=== PATIENT | female | born 1975 | race Caucasian/White ===

== ENCOUNTER 2019-08-26 09:21 | Emergency (ER) | payer SELFPAY ==
--- NOTE | 2019-08-26 09:43 | EDM.PDOC ---
ED HPI GENERAL MEDICAL PROBLEM - General Chief Complaint: General Stated Complaint: L SIDE RIB PAIN Time Seen by Provider: 08/26/19 09:42 - History of Present Illness INITIAL COMMENTS - FREE TEXT/NARRATIVE: 44-year-old female presents emergency room with left-sided rib pain. 5 days ago the patient fell. She hit her rib cage on the left side on a baby gate. This occurred in [place]. She then took a bus ride up here and had some mild discomfort but now the pain is getting worse. She's also having some burning and frequency with urination. She may been exposed to genital herpes. Treatments [employer]: Reports: Cold Therapy, NSAIDS Left Middle Pain Score (Numeric/FACES): 8 - Related Data Allergies Allergy/AdvReac Type Severity Reaction Status Date / Time No Known Allergies Allergy Verified 08/26/19 09:30 Home Meds: Home Meds Naproxen [Naprosyn] 500 mg PO Q12HR #30 tab 08/26/19 [Rx] ED ROS GENERAL - Review of Systems Review Of Systems: See Below Constitutional: Reports: No Symptoms Respiratory: Reports: No Symptoms, Pleuritic Chest Pain Cardiovascular: Reports: No Symptoms Endocrine: Reports: No Symptoms GI/Abdominal: Reports: No Symptoms ED EXAM, GENERAL - Physical Exam Exam: See Below Exam Limited By: No Limitations General Appearance: Alert, No Apparent Distress Head: Atraumatic, Normocephalic Neck: Normal Inspection, Supple, Non-Tender, Full Range of Motion Respiratory/Chest: No Respiratory Distress, Lungs Clear, Normal Breath Sounds, Other (Deep breathing causes left lower rib discomfort) Cardiovascular: Regular Rate, Rhythm, No Edema, No Murmur GI/Abdominal: Normal Bowel Sounds, Soft, Other (Significant abdominal discomfort however palpation of the left upper abdomen causes her ribs to hurt) Back Exam: Normal Inspection. No: CVA Tenderness (L), CVA Tenderness (R), Vertebral Tenderness Neurological: Alert, Oriented, Normal Cognition Psychiatric: Normal Affect, Normal Mood Course - Vital Signs Last Recorded V/S: Last Vital Signs Temp 36.8 C 08/26/19 09:31 Pulse 106 H 08/26/19 09:31 Resp 12 08/26/19 09:31 BP 116/95 H 08/26/19 09:31 Pulse Ox 97 08/26/19 09:31 - Orders/Labs/Meds Labs: Laboratory Tests 08/26/19 08/26/19 08/26/19 Range/Units 10:00 10:26 10:26 D-Dimer, Quantitative 0.21 (0.19-0.50) mg/L Sodium 142 (136-145) mEq/L Potassium 4.3 (3.5-5.1) mEq/L Chloride 106 (98-107) mEq/L Carbon Dioxide 26 (21-32) mEq/L Anion Gap 14.3 (5-15) BUN 9 (7-18) mg/dL Creatinine 0.8 (0.55-1.02) mg/dL Est Cr Clr Drug Dosing 83.13 mL/min Estimated GFR (MDRD) > 60 (>60) mL/min BUN/Creatinine Ratio 11.3 L (14-18) Glucose 91 (74-106) mg/dL Calcium 8.9 (8.5-10.1) mg/dL Urine Color Yellow (Yellow) Urine Appearance Clear (Clear) Urine pH 6.0 (5.0-8.0) Ur Specific [place] 1.015 (1.005-1.030) Urine Protein Negative (Negative) Urine Glucose (UA) Negative (Negative) Urine Ketones Negative (Negative) Urine Occult Blood Trace-lysed H (Negative) Urine Nitrite Negative (Negative) Urine Bilirubin Negative (Negative) Urine Urobilinogen 0.2 (0.2-1.0) Ur Leukocyte Esterase 1+ H (Negative) Urine RBC 0-5 (0-5) /hpf Urine WBC 5-10 H (0-5) /hpf Ur Squamous Epith Cells 5-10 H (0-5) /hpf Urine Bacteria Few (FEW) /hpf Urine Mucus Few (FEW) /hpf Meds: Medications Discontinued Medications Generic Name Dose Route Start Last Admin Trade Name Freq PRN Reason Stop Dose Admin Ketorolac Tromethamine 30 mg 08/26/19 11:28 Toradol IM 08/26/19 11:29 ONETIME ONE - Re-Assessments/Exams Free Text/Narrative Re-Assessment/Exam: 08/26/19 11:35 Chest x-ray is unremarkable laboratory evaluation is for the most part unremarkable except he has some microscopic hematuria. I did discuss the findings with the patient will give her a shot of Toradol and start her on Naprosyn 500 twice a day with meals. We can do an HSV test here however to send and did not order it. Patient is at her visiting and can follow-up with her regular physician when she gets home. Even her partner is on suppressive therapy he can still shed at times. Departure - Departure Time of Disposition: 11:36 Disposition: Home, Self-Care 01 Clinical Impression: Soft tissue injury of left chest wall - Discharge Information Prescriptions: Naproxen [Naprosyn] 500 mg PO Q12HR #30 tab Referrals: PCP,Not In Area [Primary Care Provider] - Forms: ED Department Discharge Additional Instructions: Return to the emergency room with any questions problems or worsening symptoms. When you get home follow-up with your regular physician and discuss if you should be tested for herpes. For the chest wall injury you have been started on Naprosyn. Do not take this with ibuprofen. Take one twice daily with your morning and evening meals. You may also supplement acetaminophen, or Tylenol if more pain control as needed.
--- NOTE | 2019-08-26 11:14 | CR ---
Chest: Two views of the chest were obtained. Comparison: No prior chest x-ray. Heart size and mediastinum are normal. Minimal tenting of the left hemidiaphragm is note which is incidental. Lungs show no acute parenchymal change. Bony structures are unremarkable. Impression: 1. Nothing acute is seen on two-view chest x-ray. Diagnostic code #1
[2019-08-26] MEDS ORDERED: Ketorolac 30 MG/ML SDV IM ONE (11:28)
== END 2019-08-26 11:50 | disposition home or self-care (01) ==
LOC: JD.ED 09:21
DX: S29.9XXA Unspecified injury of thorax, initial encounter (principal); W19.XXXA Unspecified fall, initial encounter; W22.09XA Striking against other stationary object, initial encounter; Y92.89 Other specified places as the place of occurrence of the external cause
CPT/HCPCS: 36415; 71046; 80048; 81001; 85379; 96372; 99284; J1885; 99283